=== PATIENT | female | born 1930 | race Caucasian/White ===

== ENCOUNTER 2016-11-05 01:27 | Inpatient (IN) | payer MEDICARE, OTHER ==
[~2016-11-05] VITALS: Ht 152.4 cm; Wt 50.4 kg
[2016-11-05] MEDS ORDERED: IV NS 0.9% 500 ML BAG IV ONE (02:30)
[2016-11-05 03:00] LABS: BASOPHILS % (AUTO) 0.5 % (0.0-2.0); DIFF TOTAL % 100 %; EOSINOPHILS % (AUTO) 0.7 % (0.0-6.0); HEMATOCRIT 32 % (33-45); HEMOGLOBIN 9.7 g/dL (11.5-14.8); LYMPHOCYTES # (AUTO) 0.5 /CMM (0.8-4.8); LYMPHOCYTES % (AUTO) 9.9 % (20.0-44.0); MEAN CORPUSCULAR HEMOGLOBIN 25 PG (26.0-33.0); MEAN CORPUSCULAR HGB CONC 30 g/dl (31.0-36.0); MEAN CORPUSCULAR VOLUME 85 fL (82-100); MONOCYTES # (AUTO) 0.6 /CMM (0.1-1.30); MONOCYTES % (AUTO) 10.9 % (2.0-12.0); NEUTROPHILS # (AUTO) 4.3 /CMM (1.8-8.9); PLATELET COUNT (AUTO) 309 /CMM (150-450); RED BLOOD CELL COUNT(AUTO) 3.83 MIL/uL (4.0-5.2); WHITE BLOOD COUNT (AUTO) 5.5 K/uL (4.3-11.0)
[2016-11-05] MEDS ORDERED: ONDANSETRON HCL/PF - ER 4 MG/2 ML VIAL IV ONE ×2 (03:00)
[2016-11-05 03:12] LABS: CALCIUM, SERUM 8.5 mg/dL (8.5-10.1); POTASSIUM 3.7 mmol/L (3.5-5.1)
[2016-11-05 03:15] LABS: INR 1.1 (0.87-1.13); PROTHROMBIN TIME 11.9 SECS (9.5-12.7)
[2016-11-05 03:19] LABS: TROPONIN I 0.246 ng/mL (0.00-0.056)
[2016-11-05 03:20] LABS: LACTIC ACID 1.4 mmol/L (0.4-2.0)
[2016-11-05] MEDS ORDERED: LEVOFLOXACIN 750 MG /D5W 150ML 150 ML IV ONE (03:20)
[2016-11-05] MEDS ORDERED: ONDANSETRON HCL/PF 4 MG/2 ML VIAL ONE (03:20)
[2016-11-05] MEDS ORDERED: IV NS 0.9% 500 ML IV ONE (03:20)
[2016-11-05] MEDS ORDERED: IV SET PRIMARY 1 EA INFUS.SET MC ONE (03:20)
[2016-11-05] MEDS ORDERED: IV SET PRIMARY PUMP SET 1 EA INFUS.SET MC ONE (03:21)
[2016-11-05 03:25] LABS: ALBUMIN 3.5 g/dL (3.4-5.0); BILIRUBIN,DIRECT 0.2 mg/dL (0.0-0.2); BILIRUBIN,TOTAL 0.7 mg/dL (0.2-1.0); INDIRECT BILIRUBIN 0.5 mg/dL (0.0-1.1); TOTAL PROTEIN, SERUM 6.4 g/dL (6.4-8.2)
[2016-11-05] MEDS ORDERED: LEVOFLOXACIN 750 MG /D5W 150ML PIGGYBACK IV ONE (03:30)
[2016-11-05] MEDS ORDERED: NITROGLYCERIN PACKET 1 GM PACKET ONE (03:49)
[2016-11-05] MEDS ORDERED: ASPIRIN 81 MG TAB.CHEW ONE (03:49)
[2016-11-05] MEDS ORDERED: ASPIRIN 81 MG TAB.CHEW PO ONE (04:00)
[2016-11-05] MEDS ORDERED: NITROGLYCERIN PACKET 1 GM PACKET TD ONE (04:00)
[2016-11-05] MEDS ORDERED: NITROGLYCERIN 0.4 MG/TAB BOTTLE SL PRN (05:00)
[2016-11-05] MEDS ORDERED: ONDANSETRON HCL/PF 4 MG/2 ML VIAL IVP PRN (05:00)
[2016-11-05] MEDS ORDERED: Z GUARD REMEDY 2 OZ OINT TP PRN ×2 (05:00→16:00)
[2016-11-05] MEDS ORDERED: TEMAZEPAM 15 MG CAPSULE PO PRN (05:00)
[2016-11-05] MEDS ORDERED: MAG HYDROX/AL HYDROX/SIMETH 30 ML UDC PO PRN (05:00)
[2016-11-05 05:05] VITALS: BP 144/34
[2016-11-05] MEDS ORDERED: LOSA50TA21 PO (05:48)
[2016-11-05] MEDS ORDERED: SIMV20TA6 PO (05:48)
[2016-11-05] MEDS ORDERED: DIGO125T PO (05:48)
[2016-11-05] MEDS ORDERED: ISOS30TA6 PO (05:48)
[2016-11-05] MEDS ORDERED: LEVO25TA7 PO (05:48)
[2016-11-05] MEDS ORDERED: DIPH1TAB PO (05:48)
[2016-11-05 08:00] VITALS: BP 122/60
[2016-11-05 08:16] LABS: THYROID STIMULATING HORMONE 3.492 uIU/mL (0.358-3.74)
[2016-11-05 08:32] LABS: PHOSPHORUS 3.3 mg/dL (2.5-4.9)
[2016-11-05] MEDS ORDERED: ENOXAPARIN SODIUM 40 MG/0.4 ML DISP.SYRIN SQ SCH (09:00)
[2016-11-05] MEDS ORDERED: DIGOXIN 0.125 MG TABLET PO SCH (09:00)
[2016-11-05] MEDS: LOSARTAN POTASSIUM 50 MG TABLET PO SCH (09:14)
[2016-11-05] MEDS: PANTOPRAZOLE 40 MG TABLET.DR PO SCH (09:14)
[2016-11-05] MEDS: LEVOTHYROXINE SODIUM 25 MCG TABLET PO SCH (09:14)
[2016-11-05] MEDS: ISOSORBIDE MONONITRATE (30MG) 30 MG TAB.SR.24H PO SCH (09:14)
[2016-11-05] MEDS: ENOXAPARIN SODIUM 30 MG/0.3 ML DISP.SYRIN SQ SCH (09:22)
[2016-11-05] MEDS ORDERED: FUROSEMIDE 20 MG/2 ML VIAL IV ONE (10:00)
[2016-11-05] MEDS: POTASSIUM CHLORIDE 20 MEQ TAB.PRT.SR PO SCH ×3 (10:17→13:18)
[2016-11-05 12:00] VITALS: BP 116/46
[2016-11-05 16:00] VITALS: BP 112/59
[2016-11-05 17:07] LABS: KETONES,URINE NEGATIVE (NEGATIVE); LEUKOCYTE ESTERASE ,URINE TRACE (NEGATIVE); PH,URINE 5.5 (5.0-8.0)
[2016-11-05 17:12] LABS: ADD UA MICROSCOPIC YES
[2016-11-05 19:11] LABS: ADD URINE CULTURE YES
[2016-11-05 20:00] VITALS: BP 111/48
[2016-11-05] MEDS: ATORVASTATIN 10 MG TABLET PO SCH (21:38)
[2016-11-06] VITALS (7 sets, daily range): BP systolic 87–125; BP diastolic 34–55
[2016-11-06 08:07] LABS: BASOPHILS % (AUTO) 0.3 % (0.0-2.0); DIFF TOTAL % 100 %; EOSINOPHILS # (AUTO) 0.1 /CMM (0.0-0.7); EOSINOPHILS % (AUTO) 2.1 % (0.0-6.0); HEMATOCRIT 31 % (33-45); HEMOGLOBIN 9.5 g/dL (11.5-14.8); LYMPHOCYTES # (AUTO) 0.9 /CMM (0.8-4.8); LYMPHOCYTES % (AUTO) 16.9 % (20.0-44.0); MEAN CORPUSCULAR HEMOGLOBIN 26 PG (26.0-33.0); MEAN CORPUSCULAR HGB CONC 31 g/dl (31.0-36.0); MEAN CORPUSCULAR VOLUME 85 fL (82-100); MONOCYTES # (AUTO) 0.8 /CMM (0.1-1.30); MONOCYTES % (AUTO) 14.9 % (2.0-12.0); NEUTROPHILS # (AUTO) 3.5 /CMM (1.8-8.9); NEUTROPHILS % (AUTO) 65.8 % (43.0-81.0); PLATELET COUNT (AUTO) 296 /CMM (150-450); RED BLOOD CELL COUNT(AUTO) 3.66 MIL/uL (4.0-5.2); WHITE BLOOD COUNT (AUTO) 5.4 K/uL (4.3-11.0)
[2016-11-06 08:33] LABS: CALCIUM, SERUM 8.1 mg/dL (8.5-10.1); CREATININE 0.9 mg/dL (0.6-1.3); POTASSIUM 4.4 mmol/L (3.5-5.1)
[2016-11-06] MEDS: PANTOPRAZOLE 40 MG TABLET.DR PO SCH (08:37)
[2016-11-06] MEDS: LEVOTHYROXINE SODIUM 25 MCG TABLET PO SCH (08:37)
[2016-11-06] MEDS: ISOSORBIDE MONONITRATE (30MG) 30 MG TAB.SR.24H PO SCH (08:38)
[2016-11-06] MEDS: LOSARTAN POTASSIUM 50 MG TABLET PO SCH (08:38)
[2016-11-06] MEDS: ENOXAPARIN SODIUM 30 MG/0.3 ML DISP.SYRIN SQ SCH (08:49)
[2016-11-06] MEDS: ASPIRIN 81 MG TAB.CHEW PO SCH (08:49)
[2016-11-06] MEDS ORDERED: LEVOFLOXACIN 750 MG /D5W 150ML 750 MG in PREMIX 1 EA IV SCH (09:00)
[2016-11-06] MEDS: FUROSEMIDE 40 MG/4 ML VIAL IV SCH ×3 (11:55→21:16)
[2016-11-06] MEDS ORDERED: IV SET PRIMARY PUMP SET 1 EA INFUS.SET MC ONE (15:23)
[2016-11-06] MEDS: SOD FERRIC GLUC 125 MG in IV NS 0.9% 100 ML IV SCH (15:24)
[2016-11-06 18:16] LABS: GLUCOSE,BODY FLUID 123 mg/dL; LDH, BODY FLUID 76 U/L
[2016-11-06 18:49] LABS: APPEARANCE,UNSPUN,BODY FLUID SLIGHTLY HAZY (CLEAR); COLOR,BODY FLUID LT YELLOW (LT YELLOW); POLYNUCLEAR, BODY FLUID 17 % (0-25); RBC, BODY FLUID 3000 /cu. mm. (0-2000); WBC, BODY FLUID 270 /cu. mm. (0-200)
[2016-11-06 19:28] LABS: PROTEIN, BODY FLUID 1509.8 G/DL
[2016-11-06] MEDS: ATORVASTATIN 10 MG TABLET PO SCH (21:16)
[2016-11-07] VITALS: BP 104/38
[2016-11-07 04:00] VITALS: BP 100/37
[2016-11-07] MEDS ORDERED: IV SET PRIMARY PUMP SET 1 EA INFUS.SET MC ONE ×2 (04:33→11:06)
[2016-11-07] MEDS: LEVOFLOXACIN 750 MG /D5W 150ML 750 MG in PREMIX 1 EA IV SCH (04:37)
[2016-11-07 07:58] LABS: ALBUMIN 2.8 g/dL (3.4-5.0); BILIRUBIN,TOTAL 2.1 mg/dL (0.2-1.0); CALCIUM, SERUM 7.9 mg/dL (8.5-10.1); CREATININE 0.9 mg/dL (0.6-1.3); POTASSIUM 3.7 mmol/L (3.5-5.1); TOTAL PROTEIN, SERUM 5.6 g/dL (6.4-8.2)
[2016-11-07 07:59] LABS: TROPONIN I 0.217 ng/mL (0.00-0.056)
[2016-11-07 08:00] VITALS: BP 145/67
[2016-11-07 08:08] LABS: BASOPHILS % (AUTO) 0.2 % (0.0-2.0); DIFF TOTAL % 100 %; EOSINOPHILS # (AUTO) 0.1 /CMM (0.0-0.7); HEMATOCRIT 31 % (33-45); HEMOGLOBIN 9.4 g/dL (11.5-14.8); LYMPHOCYTES # (AUTO) 0.7 /CMM (0.8-4.8); LYMPHOCYTES % (AUTO) 9.4 % (20.0-44.0); MEAN CORPUSCULAR HEMOGLOBIN 26 PG (26.0-33.0); MEAN CORPUSCULAR HGB CONC 31 g/dl (31.0-36.0); MEAN CORPUSCULAR VOLUME 85 fL (82-100); MONOCYTES # (AUTO) 1.1 /CMM (0.1-1.30); MONOCYTES % (AUTO) 15.3 % (2.0-12.0); NEUTROPHILS # (AUTO) 5.2 /CMM (1.8-8.9); NEUTROPHILS % (AUTO) 74.1 % (43.0-81.0); PLATELET COUNT (AUTO) 330 /CMM (150-450); RED BLOOD CELL COUNT(AUTO) 3.59 MIL/uL (4.0-5.2)
[2016-11-07] MEDS: LEVOTHYROXINE SODIUM 25 MCG TABLET PO SCH (08:58)
[2016-11-07] MEDS: PANTOPRAZOLE 40 MG TABLET.DR PO SCH (08:58)
[2016-11-07] MEDS: ISOSORBIDE MONONITRATE (30MG) 30 MG TAB.SR.24H PO SCH (08:59)
[2016-11-07] MEDS: FUROSEMIDE 40 MG TABLET PO SCH (08:59)
[2016-11-07] MEDS: POTASSIUM CHLORIDE 20 MEQ TAB.PRT.SR PO SCH (08:59)
[2016-11-07] MEDS: LOSARTAN POTASSIUM 50 MG TABLET PO SCH (08:59)
[2016-11-07] MEDS: ASPIRIN 81 MG TAB.CHEW PO SCH (08:59)
[2016-11-07] MEDS: ENOXAPARIN SODIUM 30 MG/0.3 ML DISP.SYRIN SQ SCH (09:01)
[2016-11-07 09:33] VITALS: BP 145/67
[2016-11-07] MEDS ORDERED: SECONDARY IV SET 1 EA INFUS.SET MC ONE ×2 (10:59→15:33)
[2016-11-07] MEDS: Magnesium 1GM/D5W 100ML PREMIX 100 ML IV SCH ×2 (11:07→12:32)
[2016-11-07 11:45] LABS: EOSINOPHILS % (MANUAL) 1 % (0-4); LYMPHOCYTES % (MANUAL) 19 % (16-48)
[2016-11-07 11:46] LABS: ANISOCYTOSIS 2+; HYPOCHROMASIA 1+; PLATELET ESTIMATE ADEQUATE
[2016-11-07] MEDS: SOD FERRIC GLUC 125 MG in IV NS 0.9% 100 ML IV SCH (15:32)
[2016-11-07 16:00] VITALS: BP 134/51
[2016-11-07 20:00] VITALS: BP 103/34
[2016-11-07] MEDS: ACETAMINOPHEN 325 MG TABLET PO PRN (20:55)
[2016-11-07] MEDS: MAGNESIUM HYDROXIDE 30 ML UDC PO PRN (20:56)
[2016-11-07] MEDS: ATORVASTATIN 10 MG TABLET PO SCH (21:09)
[2016-11-08 04:00] VITALS: BP 114/54
[2016-11-08 07:55] LABS: BASOPHILS % (AUTO) 0.3 % (0.0-2.0); DIFF TOTAL % 100 %; EOSINOPHILS # (AUTO) 0.1 /CMM (0.0-0.7); EOSINOPHILS % (AUTO) 1.7 % (0.0-6.0); HEMATOCRIT 31 % (33-45); HEMOGLOBIN 9.4 g/dL (11.5-14.8); LYMPHOCYTES # (AUTO) 0.8 /CMM (0.8-4.8); LYMPHOCYTES % (AUTO) 10.8 % (20.0-44.0); MEAN CORPUSCULAR HEMOGLOBIN 26 PG (26.0-33.0); MEAN CORPUSCULAR HGB CONC 31 g/dl (31.0-36.0); MEAN CORPUSCULAR VOLUME 86 fL (82-100); MONOCYTES # (AUTO) 1.2 /CMM (0.1-1.30); MONOCYTES % (AUTO) 14.7 % (2.0-12.0); NEUTROPHILS # (AUTO) 5.7 /CMM (1.8-8.9); NEUTROPHILS % (AUTO) 72.5 % (43.0-81.0); PLATELET COUNT (AUTO) 331 /CMM (150-450); RED BLOOD CELL COUNT(AUTO) 3.57 MIL/uL (4.0-5.2); WHITE BLOOD COUNT (AUTO) 7.9 K/uL (4.3-11.0)
[2016-11-08 08:00] VITALS: BP_SYST 117; BP_DIAS 41; BP_DIAS 61
[2016-11-08] MEDS: FUROSEMIDE 40 MG TABLET PO SCH (08:01)
[2016-11-08] MEDS: ISOSORBIDE MONONITRATE (30MG) 30 MG TAB.SR.24H PO SCH (08:01)
[2016-11-08] MEDS: ENOXAPARIN SODIUM 30 MG/0.3 ML DISP.SYRIN SQ SCH (08:02)
[2016-11-08] MEDS: LEVOTHYROXINE SODIUM 25 MCG TABLET PO SCH (08:02)
[2016-11-08] MEDS: LOSARTAN POTASSIUM 50 MG TABLET PO SCH (08:02)
[2016-11-08] MEDS: ASPIRIN 81 MG TAB.CHEW PO SCH (08:02)
[2016-11-08] MEDS: POTASSIUM CHLORIDE 20 MEQ TAB.PRT.SR PO SCH (08:03)
[2016-11-08] MEDS: PANTOPRAZOLE 40 MG TABLET.DR PO SCH (08:03)
[2016-11-08 08:13] LABS: CREATININE 0.9 mg/dL (0.6-1.3); POTASSIUM 3.7 mmol/L (3.5-5.1)
[2016-11-08] MEDS: SOD FERRIC GLUC 125 MG in IV NS 0.9% 100 ML IV SCH (15:23)
[2016-11-08 16:00] VITALS: BP_SYST 102; BP_SYST 110; BP_DIAS 36; BP_DIAS 46
[2016-11-08 20:00] VITALS: BP 91/29
[2016-11-08] MEDS: LEVOFLOXACIN 750 MG /D5W 150ML 750 MG in PREMIX 1 EA IV SCH (22:06)
[2016-11-08] MEDS: ATORVASTATIN 10 MG TABLET PO SCH (22:06)
[2016-11-09 04:00] VITALS: BP 111/44
[2016-11-09] MEDS: PANTOPRAZOLE 40 MG TABLET.DR PO SCH (06:23)
[2016-11-09 06:49] LABS: CALCIUM, SERUM 8.1 mg/dL (8.5-10.1); CREATININE 0.8 mg/dL (0.6-1.3); POTASSIUM 4.8 mmol/L (3.5-5.1)
[2016-11-09] MEDS: FUROSEMIDE 40 MG TABLET PO SCH (08:32)
[2016-11-09] MEDS: LEVOTHYROXINE SODIUM 25 MCG TABLET PO SCH (08:33)
[2016-11-09] MEDS: POTASSIUM CHLORIDE 20 MEQ TAB.PRT.SR PO SCH (08:33)
[2016-11-09] MEDS: ASPIRIN 81 MG TAB.CHEW PO SCH (08:33)
[2016-11-09] MEDS: ENOXAPARIN SODIUM 30 MG/0.3 ML DISP.SYRIN SQ SCH (10:19)
[2016-11-09] MEDS: ISOSORBIDE MONONITRATE (30MG) 30 MG TAB.SR.24H PO SCH (10:48)
[2016-11-09 10:49] VITALS: BP 104/49
[2016-11-09] MEDS: LOSARTAN POTASSIUM 50 MG TABLET PO SCH (10:49)
[2016-11-09] MEDS: MAGNESIUM HYDROXIDE 30 ML UDC PO PRN (10:53)
[2016-11-09] MEDS: SOD FERRIC GLUC 125 MG in IV NS 0.9% 100 ML IV SCH (14:50)
[2016-11-09] MEDS: ACETAMINOPHEN 325 MG TABLET PO PRN (15:12)
== END 2016-11-09 20:27 | DRG 280 ==
LOC: ER 01:28 → TELE-TD 04:40 → TELE1 12:34 → MEDSG1 11-07 07:39
PROVIDERS: ADMIT Nurse Practitioner Acute Care; ATTEND Nurse Practitioner Acute Care
PROC: 0W993ZZ Drainage of Right Pleural Cavity, Percutaneous Approach (ICD-10-PCS; principal; 2016-11-06)
DX: I11.0 Hypertensive heart disease with heart failure (principal); I21.4 Non-ST elevation (NSTEMI) myocardial infarction; J96.01 Acute respiratory failure with hypoxia; J90 Pleural effusion, not elsewhere classified; I50.21 Acute systolic (congestive) heart failure; E78.5 Hyperlipidemia, unspecified; I25.10 Atherosclerotic heart disease of native coronary artery without angina pectoris; I25.2 Old myocardial infarction; D63.8 Anemia in other chronic diseases classified elsewhere; R55 Syncope and collapse; R60.9 Edema, unspecified; I27.2 Other secondary pulmonary hypertension; I34.0 Nonrheumatic mitral (valve) insufficiency; I35.1 Nonrheumatic aortic (valve) insufficiency; M41.9 Scoliosis, unspecified
CPT/HCPCS: 36415; 71010-TC; 76942-TC; 80048-TC; 80053-TC; 80061-TC; 80076-TC; 80162-TC; 81000-TC; 83540-TC; 83605-TC; 83735-TC; 83880; 84100-TC; 84443-TC; 84484-TC; 85025-TC; 85730-TC; 86850-TC; 87040-TC; 87070-TC; 87081-TC; 89051-TC; 93307-TC; 94799-TC; 97001-TC; 97116-TC; 97530-TC; A4216; A4606; J1650; J1940; J1956; J2405; J2916; J3475; J7030; J7040; Z7610